=== PATIENT | female | born 1990 | race Caucasian/White ===

== ENCOUNTER 2024-01-24 18:12 | Emergency (ER) | payer OTHER ==
[~2024-01-24] VITALS: Ht 165.1 cm; Wt 72.5 kg
[2024-01-24 18:57] VITALS: BP 106/75; PULSE 73; RESP 17; TEMP 98.1; O2SAT 98
== END 2024-01-24 21:42 | disposition home or self-care (01) ==
LOC: ER 18:12
DX: O9A.212 Injury, poisoning and certain other consequences of external causes complicating pregnancy, second trimester (principal); S63.509A Unspecified sprain of unspecified wrist, initial encounter; S43.409A Unspecified sprain of unspecified shoulder joint, initial encounter; W01.0XXA Fall on same level from slipping, tripping and stumbling without subsequent striking against object, initial encounter; Y93.89 Activity, other specified; Y92.000 Kitchen of unspecified non-institutional (private) residence as the place of occurrence of the external cause; Y99.8 Other external cause status
CPT/HCPCS: 76805